=== PATIENT | female | born 1960 | race Caucasian/White ===

== ENCOUNTER 2025-08-14 05:57 | Day surgery (SDC) | payer OTHER, SELFPAY ==
[2025-08-14] VITALS (12 sets, daily range): BP systolic 124–142; BP diastolic 61–75; BMI 42.8
[2025-08-14 07:20] LABS: Hematocrit 39.0 % (37.0-47.0); Hemoglobin 12.3 g/dL (12.0-16.0); Mean Corp Hgb Conc. 31.5 g/dL (33.0-37.0); Mean Corpuscular Volume 82.6 fL (81.0-99.0); Platelet Count 333 10^3/uL (130-400); Red Cell Dist. Width 14.7 % (11.5-14.5)
[2025-08-14] MEDS: LOW STRENGTH ASPIRIN 324 MG PO (07:21)
[2025-08-14 07:26] LABS: Blood Urea Nitrogen 16 mg/dl (7-17); Calcium 9.2 mg/dl (8.4-10.2); Carbon Dioxide 29 mmol/L (22-30); Chloride 106 mmol/L (98-107); Glucose 111 mg/dl (70-99); Potassium 4.1 mmol/L (3.5-5.1); Sodium 142 mmol/L (135-145); eGFR > 60.00
--- NOTE | 2025-08-14 08:56 | ITS.CL.CATH ---
Addendum entered and electronically signed by Rey Nice MD 08/14/25 09:11:
HEMODYNAMIC FINDINGS (mmHg):
LV(s/d,EDP): 215/22, 29
Ao(s/d,m): 142/79, 104
AV gradient on pullback: 64mm Hg
AV peak to peak gradient: 73 mmHg
Original Note:
Cryptographic Clerk - Catheterization
Cardiac Catheterization
Procedure Report:
LEFT HEART CATHETERIZATION
Date of Procedure: August 14, 2025
Procedures performed:
1: Coronary angiography
2: Left ventricular hemodynamic assessment
Primary Care Physician: WILLIAN Chavis
Primary Layboy Operator: Dr. Fermin Wiggins
INDICATION: The patient is a 65-year-old woman with a past medical history significant for hypertension, obesity, lymphedema, and left bundle branch block who presents for cardiac catheterization in the setting of progressive critical aortic
valvular stenosis. The patient denies any chest pain or exertional symptoms.
ACCESS: The patient was prepped and draped in usual sterile fashion. A 5 Swedish sheath was placed in the right radial artery using the Seldinger over the wire technique.
HEMODYNAMIC FINDINGS (mmHg):
LV(s/d,EDP): 215/22, 29
Ao(s/d,m): 142/79, 104
ANGIOGRAPHIC FINDINGS:
Single-plane Left Ventriculography in WALKER Projection: Not done. Preserved LV EF with severe LVH by recent echo.
Coronary Angiography:
Dominance: Left
Left Main: Normal, short. Near dual ostia.
Left Anterior Descending: Medium caliber vessel that gives rise to 1 major high diagonal branch. These vessels are angiographically normal with normal flow.
Left Circumflex: Large-caliber dominant vessel that gives rise to a small high first obtuse marginal branch, a very large branching second obtuse marginal branch, a large caliber left-sided posterior left ventricular branch, and large left sided
posterior descending artery. All vessels are angiographically normal with normal flow.
Right Coronary: Small nondominant vessel. Unable to be selectively cannulated with a 5 Swedish J R4, AR-1, and AL-1 likely due to catheter whip from the jet and somewhat anterior takeoff. Image nonselectively with a pigtail injection at the
right coronary cusp. Widely patent vessel with no focal disease.
Fluoroscopy Time (min): 11.9
Radiation Dose (mGy): 602
DAP (Gy.cm2): 37
Closure device: None. A TR band was applied for hemostasis at the right wrist.
Complications: None.
ASSESSMENT:
1: Normal coronaries.
2: Elevated left ventricular filling pressures. The patient was given IV Lasix 20 mg at the end of the case.
CONCLUSIONS and RECOMMENDATIONS:
1: CT surgical evaluation for SAVR given young age. Will arrange for consultation with Dr. Jean Pierre Hooper.
2: Clinical follow-up as scheduled.
Rey Nice M.D.
[2025-08-14] MEDS: NSS 510 IV (09:05)
== END 2025-08-14 11:30 | disposition home or self-care (01) ==
LOC: CATH 05:57
PROVIDERS: ATTENDING PHYSICIAN Internal Medicine Interventional Cardiology; FAMILY PHYSICIAN Nurse Practitioner; OTHER PHYSICIAN Nurse Practitioner
DX: I08.0 Rheumatic disorders of both mitral and aortic valves (principal); I35.0 Nonrheumatic aortic (valve) stenosis; E66.9 Obesity, unspecified; I10 Essential (primary) hypertension; I89.0 Lymphedema, not elsewhere classified; I44.7 Left bundle-branch block, unspecified
CPT/HCPCS: 80048; 85027; 93005; 93458; C1769; C1894; Q9967

== ENCOUNTER → 2025-08-19 09:57 | Outpatient (REF) | payer OTHER, SELFPAY ==
[2025-08-19 11:48] LABS: Blood Urea Nitrogen 10 mg/dl (7-17); Calcium 9.1 mg/dl (8.4-10.2); Carbon Dioxide 29 mmol/L (22-30); Chloride 106 mmol/L (98-107); Glucose 99 mg/dl (70-99); Potassium 4.4 mmol/L (3.5-5.1); Sodium 139 mmol/L (135-145); eGFR > 60.00
== END ==
LOC: REG 09:57
PROVIDERS: ATTENDING PHYSICIAN Nurse Practitioner Acute Care; FAMILY PHYSICIAN Nurse Practitioner
DX: I35.0 Nonrheumatic aortic (valve) stenosis (principal)
CPT/HCPCS: 36415; 80048

== ENCOUNTER 2025-09-18 04:44 | Inpatient (IN) | payer OTHER, SELFPAY ==
[2025-08-23 09:51] LABS: Urine Character Clear (Clear)
--- NOTE | 2025-08-23 09:57 | CM ---
Met with and Mrs. Colby in [facility]'s. She states prior to admission she resides with her spouse in a two story home with two steps to enter. She states she has a full flight of steps to get to bedroom/full bathroom. She has a powder room on the
first floor. She states prior to admission she was independent with ambulation and adls. She states she does not have any DME in the home. She states she has a prescription plan and uses mail order ans [facility] when needed. She states her
spouse will be home to assist in her care if needed. The discharge plan is to return home with her spouse and a home visit by the Transitional Care Nurse when medically stable.
We reviewed pre-op and post-op routines. We reviewed the shower instructions. She has the soap, written instructions and the Cardiothoracic Surgery Educational Booklet. We also reviewed restrictions including sternal precautions and driving
restrictions. We discussed a home visit by the Transitional Care Nurse. She is areeable to a home visit. The plan is for AVR on Tuesday, September 18.
[2025-08-23 10:12] LABS: Hematocrit 37.2 % (37.0-47.0); Hemoglobin 11.8 g/dL (12.0-16.0); Mean Corp Hgb Conc. 31.7 g/dL (33.0-37.0); Mean Corpuscular Volume 85.7 fL (81.0-99.0); Nucleated Red Blood Cells % 0 %; Platelet Count 288 10^3/uL (130-400); Red Cell Dist. Width 15.6 % (11.5-14.5)
[2025-08-23 10:13] LABS: INR 0.93; PT 12.8 Sec (11.4-14.6)
[2025-08-23 10:37] LABS: Glycohemoglobin (HgbA1c) 5.8 % (4.0-5.6)
[2025-08-23 10:41] LABS: ALT (SGPT) 29 U/L (0-35); AST (SGOT) 21 U/L (14-36); Albumin 4.3 g/dl (3.5-5.0); Alkaline Phosphatase 97 U/L (38-126); Blood Urea Nitrogen 13 mg/dl (7-17); Calcium 9.1 mg/dl (8.4-10.2); Carbon Dioxide 28 mmol/L (22-30); Chloride 106 mmol/L (98-107); Glucose 88 mg/dl (70-99); Potassium 4.0 mmol/L (3.5-5.1); Sodium 141 mmol/L (135-145); Total Protein 7.2 g/dl (6.3-8.2); eGFR > 60.00
[2025-08-23 10:46] LABS: Urine Squamous Cell >30 /LPF (Few); Urine Urothelial Cell 0-2 /LPF (FEW)
[2025-08-23 10:47] LABS: Urine Red Blood Cell 0-2 /HPF (0-2)
[2025-08-26 09:12] VITALS: BMI 42.7
--- NOTE | 2025-09-09 10:45 | OID.L.PAT ---
Pulmonary Nodule Pat Letter
- -
09/09/25
DANI BARNETT
[address]
[place], [place] [address]
Deakimberly LOUISE,
A pulmonary nodule was seen on an imaging study done by [facility]. This was reviewed by the [facility] Pulmonary Nodule Advisory Board and the following recommendation was made:
Recommendation: Per Fleischner Society Guidelines for incidentally detected Pulmonary Nodules, if patient has increased risk factors for lung cancer, follow up CT Chest in one year recommended. If patient does not have increased risk factors, no
further follow up is required.
If you have any questions, please do not hesitate to contact your primary care physician. If you are in need of a Physician, you can go to [email or web address] and click on 'Find a Provider'. Type 'Family Medicine' in the search.
Oncology Nurse Navigator
[facility]
[phone]
--- NOTE | 2025-09-09 10:46 | OID.L.REC ---
Pulmonary Nodule Follow Up
- Recommendation
09/09/25
Pulmonary Nodule Review Recommendations
Your patient, DANI BARNETT, had a pulmonary nodule seen on an imaging study done on in the [facility] Radiology Department.
This was reviewed by the [facility] Pulmonary Nodule Advisory Board and the following recommendation was made:
Recommendation: Per Fleischner Society Guidelines for incidentally detected Pulmonary Nodules, if patient has increased risk factors for lung cancer, follow up CT Chest in one year recommended. If patient does not have increased risk factors, no
further follow up is required.
If you have any questions, please do not hesitate to contact us.
Sincerely,
Oncology Nurse Navigator
[facility]
[phone]
[2025-09-18] VITALS (10 sets, daily range): BP systolic 83–137; BP diastolic 49–68; O2SAT 95; BMI 42.9
[2025-09-18] MEDS: LOPRESSOR 25 MG PO (05:10)
[2025-09-18] MEDS: MAGNESIUM OXIDE 400 MG PO (05:10)
[2025-09-18] MEDS: PROTONIX 40 MG PO (05:10)
[2025-09-18] MEDS: BACTROBAN 2% OINTMENT 1 APPLIC NASAL ×2 (05:11→20:10)
--- NOTE | 2025-09-18 05:29 | PTCARENOTE ---
Patient admitted to CVICU. Patient confirmed 2 CHG showers. Patient washed w/ CHG wipes and clipped. Admission questions asked. Med rec performed. Medications administered. Lab obtained. Questions encouraged and answered. Awaiting CVOR.
--- NOTE | 2025-09-18 06:28 | W.CVOR.SURPR ---
CVOR Surgeon Immed Pre Op
-
I have examined this patient prior to performance of the scheduled procedure.
The patient's condition is unchanged from the time of the dictated/written History and
Physical and the patient is able to undergo the scheduled procedure.
savr
[2025-09-18 07:39] LABS: ACT+ - POC 134 Seconds (82-134)
[2025-09-18 08:08] LABS: Urine Character Clear (Clear)
[2025-09-18 08:38] LABS: ACT+ - POC 456 Seconds (82-134)
--- NOTE | 2025-09-18 08:45 | CM ---
pt in OR today, cm to follow.
[2025-09-18 08:47] LABS: B.E. - POC 0.1 mmol/L; Glucose - POC 110 mg/dl (70-99); HCO3 - POC 25 mmol/L (21-28); Hematocrit - POC 28 % PCV (37-47); Hemodilution- POC No; Hemoglobin Calculated - POC 9.6; Ionized Calcium - POC 1.12 mmol/L (1.15-1.33); Lactate - POC 1.11 mmol/L (0.36-0.75); O2 Saturation %Calculated-POC 98.6 % (94-98); PCO2 - POC 39 mmHg (35-48); PO2 - POC 115 mmHg (83-108); POC Comment PRE; Potassium - POC 3.6 mmol/L (3.5-5.1); Sodium - POC 141 mmol/L (136-145); Specimen Type - POC Arterial; pH - POC 7.41 (7.35-7.45)
[2025-09-18 08:49] LABS: ACT+ - POC 579 Seconds (82-134)
[2025-09-18 08:57] LABS: ACT+ - POC 529 Seconds (82-134)
[2025-09-18 09:00] LABS: Urine Squamous Cell 0-2 /LPF (Few)
[2025-09-18 09:01] LABS: Urine Red Blood Cell 0-2 /HPF (0-2); Urine White Cell 0-2 /HPF (0-5)
[2025-09-18 09:08] LABS: B.E. - POC 4.6 mmol/L; Glucose - POC 128 mg/dl (70-99); HCO3 - POC 29 mmol/L (21-28); Hematocrit - POC 29 % PCV (37-47); Hemodilution- POC Yes; Hemoglobin Calculated - POC 9.8; Ionized Calcium - POC 1.03 mmol/L (1.15-1.33); Lactate - POC 0.66 mmol/L (0.36-0.75); O2 Saturation %Calculated-POC 100.0 % (94-98); PCO2 - POC 39 mmHg (35-48); PO2 - POC 362 mmHg (83-108); POC Comment CPB; Potassium - POC 4.4 mmol/L (3.5-5.1); Sodium - POC 142 mmol/L (136-145); Specimen Type - POC Arterial; pH - POC 7.47 (7.35-7.45)
[2025-09-18 09:18] LABS: ACT+ - POC 527 Seconds (82-134)
[2025-09-18 09:22] LABS: B.E. - POC 3.3 mmol/L; Glucose - POC 168 mg/dl (70-99); HCO3 - POC 28 mmol/L (21-28); Hematocrit - POC 28 % PCV (37-47); Hemodilution- POC Yes; Hemoglobin Calculated - POC 9.6; Ionized Calcium - POC 1.08 mmol/L (1.15-1.33); Lactate - POC 0.96 mmol/L (0.36-0.75); O2 Saturation %Calculated-POC 99.8 % (94-98); PCO2 - POC 44 mmHg (35-48); PO2 - POC 231 mmHg (83-108); POC Comment CPB; Potassium - POC 4.0 mmol/L (3.5-5.1); Sodium - POC 141 mmol/L (136-145); Specimen Type - POC Arterial; pH - POC 7.42 (7.35-7.45)
[2025-09-18 09:30] LABS: ACT+ - POC 536 Seconds (82-134)
[2025-09-18 09:38] LABS: B.E. - POC 5.2 mmol/L; Glucose - POC 157 mg/dl (70-99); HCO3 - POC 30 mmol/L (21-28); Hematocrit - POC 30 % PCV (37-47); Hemodilution- POC Yes; Hemoglobin Calculated - POC 10.3; Ionized Calcium - POC 1.11 mmol/L (1.15-1.33); Lactate - POC 1.02 mmol/L (0.36-0.75); O2 Saturation %Calculated-POC 99.9 % (94-98); PCO2 - POC 43 mmHg (35-48); PO2 - POC 311 mmHg (83-108); POC Comment WARM; Potassium - POC 3.6 mmol/L (3.5-5.1); Sodium - POC 144 mmol/L (136-145); Specimen Type - POC Arterial; pH - POC 7.45 (7.35-7.45)
[2025-09-18 09:48] LABS: ACT+ - POC 120 Seconds (82-134)
--- NOTE | 2025-09-18 10:03 | W.PN.CT.SURG ---
CT Surgery Operative Note
-
CARDIAC SURGERY OPERATIVE REPORT
Preoperative Diagnosis: Severe aortic valve stenosis, critical gradient
Postoperative Diagnosis: Same
Procedure(s) Performed:
1. Status with aortic and right atrial cannulation
2. Surgical aortic valve replacement [23 mm bioprosthesis]
3. Placement of temporary ventricular pacing wire
4. Transesophageal echocardiography
Date of Surgery: 09/18/25
Comorbidities:
1. Critical gradients aortic valve stenosis
2. Mild left ventricular hypertrophy with LV diastolic dysfunction
3. Hypertension
4. Lymphedema
5. Morbidly obese a BMI of 42
Attending Surgeon: Jean Pierre Hooper MD, MS
Resident Surgeon: Christopher Barnes, PGY-2 (Cardiac Surgery Resident)
Assistants: Jean Pierre Jenkins PA-C (present and necessary to director of first impressions, retraction, suction, exposure, suture management, and wound closure under my direction)
Anesthesiology: Kalen Sirera MD and Tim Cheung CRNA
Scrub and Circulating RNs: Tamela Rosario RN, Dara Christian, CY
Supervisor Cd Area: Crystal Cummings CCP
Anesthesia: GETA
EBL: per perfusion records
Products: None
CPB Time: 54 minutes
Aortic Cross Clamp Time: 42 minutes
Indication(s) for Procedures: This is a 65-year-old female with aortic valve stenosis, her gradients were extremely elevated with a mean gradient of well over 70. Despite being asymptomatic, given her significantly elevated gradients, there was
significant concern for complications and so this Meritene discussion was to move forward with surgical intervention as part of her lifetime management.
Aortic Valve Description: Trileaflet aortic valve, heavily calcified with infiltration towards the annulus, left and right coronary ostia normal anatomic positions.
Findings: Her left ventricular ejection fraction preoperatively was 60% without any regional wall motion abnormalities. Following surgery her EF remained the same at 60% with no new regional wall motion abnormalities aortic valve was significant
calcified with which reduced leaflet excursion. She had a trileaflet morphology with normal coronary positions. Her aortic valve was excised and a total of 12 nonpledgeted 2 Ethibond sutures were placed circumferentially. This anchored a [address] with core knots. Following surgery she had no paravalvular leak and normal cardiac function. She did not require any inotropic support. Cardiac index was 2.4. She was in sinus rhythm. She did not require any blood
products.
Specimen(s): Aortic valve leaflet.
Prosthesis: 23 mm Brown Inspiris Resilia aortic valve prosthesis, serial #[id number].
Description of Procedure: The patient was taken to the operating room. Their identity and procedure to be performed were verified and they were positioned supine on the operating table. Induction via general anesthesia with endotracheal intubation
was performed and central venous access and arterial monitoring were inserted. A preoperative transesophageal echocardiogram was performed to assess cardiac function and valvular function. The patient was then prepped and draped from chin to feet in
a sterile fashion. A preoperative time-out was performed with all members of the team present. A midline chest incision was performed along with median sternotomy. The innominate vein was isolated. Full heparinization was given (a total of 60,000
units). We created a pericardial well. The aortic cannulation site was chosen where it was soft, pliable, and free of calcium. Cannulation was performed with an arterial cannula in the ascending aorta and a triple-stage venous cannula through the
right atrial appendage. The arterial cannula line had an appropriate bounce and correlating pressures with test dosing. Next, a root vent/antegrade cannula was inserted into the ascending aorta. The ACT was confirmed to be over 400 and retrograde
autologous priming was performed before commencing cardiopulmonary bypass. The pulmonary artery was away from the aorta to facilitate a clamp site and aortotomy. A left ventricular vent was placed at the right superior pulmonary vein and
secured. The aortic cross-clamp was placed after decreasing the flow on the bypass and mean arterial pressure. A total of 1.2L initial dose of antegrade Del-Nido cardioplegia solution was given and planned for re-dosing every 75 minutes as
necessary. There was rapid electro-mechanical arrest of the heart at 400 cc of cardioplegia. The left ventricle was observed for distention on echocardiogram and manual palpation. Cold slush was placed into a sponge and topically on the RV while we
systemically cooled to 34 degrees centigrade.
Carbon dioxide was used to flood the field. We manually identified the location of the right coronary take off. An aortotomy was made approximately 2cm above the sinotubular junction. The location of both left and right coronary vessels were
visualized in the root. The leaflets were excised and sent for pathological assessment. The annulus was debrided of any calcium being mindful of the annulus and membranous septum. The root and left ventricular outflow tract were thoroughly irrigated
to remove any debris. A total of 12 non-pledgeted 2-0 ethibond inverted annular sutures were placed [id number] circumferentially. These were brought through the sewing cuff of the prosthetic valve which as then parachuted into place. The left and
right coronary ostia were visualized and were unobstructed by the valve. A Cor-Knot device was used to secure the annular sutures. The valve was inspected and was well seated. The aortotomy was approximated with 4-0 prolene in two layers. De-airing
maneuvers were performed and temporary bipolar ventricular pacing wires were placed on the base of the right ventricle. The patient was placed in a Trendelenburg position and flows on bypass were lowered. The aortic cross clamp was removed and flows
were slowly brought back up. The aortotomy appeared hemostatic. Transesophageal echocardiography revealed no paravalvular leak and appropriate prosthetic function. Once de-airing was satisfactory, the left ventricular and root vents were removed.
After verifying acceptable parameters, we initiated weaning from cardiopulmonary bypass. Once we were off cardiopulmonary bypass, the venous cannula was clamped and removed. A test dose of protamine was administered and the patient was monitored for
any adverse reaction before resuming protamine. Once half of the protamine dose was delivered, pump suckers were turned off and the systolic blood pressure was lowered for aortic decannulation. The aortic cannula was removed and pursestrings were
tied down. All cannulation sites were oversewn with a 4-0 prolene. The aortotomy suture line was inspected and hemostasis was confirmed. Mediastinal hemostasis was obtained. Two 24Fr Audie drains were placed within the pericardium. The sternum was
approximated with 4#7 single and 3 #8 double stainless steel wires. Fascia was approximated with #1 vicryl suture. The subcutaneous, dermis and epidermis were closed in layers in a running fashion. The skin wound was cleansed and dressed.
All instrument, sponge, and needle counts were confirmed to be correct x 2 at the end of the operation. The patient was transferred to the cardiac intensive care unit in critical but stable condition.
I, Dr. Jean Pierre Hooper, was present, scrubbed for, and performed all critical elements of this procedure.
Jean Pierre Hooper MD, MS
Cardiothoracic Surgeon
[facility]
This operative dictation was created using the [employer] dictation system. Please excuse any grammatical, typographical, or 'sound alike' errors
[2025-09-18 10:38] LABS: Glucose - Point of Care 73 mg/dl (70-99)
[2025-09-18 10:46] LABS: Hematocrit 32.6 % (37.0-47.0); Hemoglobin 10.7 g/dL (12.0-16.0); Platelet Count 244 10^3/uL (130-400)
[2025-09-18 10:51] LABS: B.E. - POC -0.7 mmol/L; Glucose - POC 96 mg/dl (70-99); HCO3 - POC 24 mmol/L (21-28); Hematocrit - POC 28 % PCV (37-47); Hemodilution- POC Yes; Hemoglobin Calculated - POC 9.4; Ionized Calcium - POC 1.33 mmol/L (1.15-1.33); Lactate - POC 2.56 mmol/L (0.36-0.75); O2 Saturation %Calculated-POC 99.9 % (94-98); PCO2 - POC 38 mmHg (35-48); PO2 - POC 259 mmHg (83-108); POC Comment POST; Potassium - POC 3.1 mmol/L (3.5-5.1); Sodium - POC 143 mmol/L (136-145); Specimen Type - POC Arterial; pH - POC 7.40 (7.35-7.45)
[2025-09-18] MEDS: NSS 500 IV (10:51)
[2025-09-18] MEDS: ANCEF 10 IV ×2 (10:51)
[2025-09-18] MEDS: LIPITOR PO (10:51)
[2025-09-18] MEDS: NEURONTIN PO ×2 (10:51→17:00)
[2025-09-18 10:57] LABS: APTT 33.3 Sec (23.4-35.0); B.E. 0.4 mmol/L; HCO3 26.0 mmol/L (21-28); INR 1.32; O2 Saturation % 98.4 % (94-98); PCO2 45 mmHg (32-35); PO2 106 mmHg (83-108); PT 16.9 Sec (11.4-14.6); Potassium 4.1 mMOL/L (3.5-5.1); Sodium 139 mMOL/L (136-145)
[2025-09-18 11:00] LABS: O2 Therapy vent
[2025-09-18] MEDS: LR 250 ML IV ×3 (11:00→22:00)
--- NOTE | 2025-09-18 11:00 | CON.INTV ---
Consultation
Consultation Request
Date/Time Consultation Requested: 09/18
Date/Time Consultation Performed: 09/18
Reason for Consultation: critical care
Medical History
-
History of Present Illness:
History obtained from chart as patient is currently intubated and sedated. 65-year-old female with recent cardiac catheterization which confirmed severe aortic stenosis, normal coronaries. Patient had echocardiogram with normal function. Patient
has no significant pulmonary disease except with chronic lymphedema. She is now status post bioprosthetic AVR 09/18/2025 without complications. She is on low-dose norepinephrine at this time, did not require any blood products. We are asked to
help from critical care standpoint
.
PMH: Hypertension, hyperlipidemia, history of lymphedema, severe arctic stenosis, morbid obesity, history of left bundle branch block, history of PVCs
Past Medical History
Past Medical History: None (See above)
Past Surgical History: None (See above)
Social History
Tobacco: Non-smoker
Alcohol: None
Drug: None
Personal:
Living: With Family
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
Family History
Family History: Other (3 siblings, healthy. Parents )
Allergies / Home Medications
Allergies
Allergy/AdvReac Type Severity Reaction Status Date / Time
No Known Allergies Allergy Unverified 08/22/25 14:52
Home Medications
�Medication �Instructions �Recorded �Confirmed �Last Taken �Type
amlodipine 5 mg tablet 5 mg PO DAILY 08/14/25 09/18/25 09/15/25 17:00 History
atorvastatin 20 mg tablet 20 mg PO DAILY 08/14/25 09/18/25 09/15/25 17:00 History
furosemide 20 mg tablet 20 mg PO DAILY 08/14/25 09/18/25 09/15/25 17:00 History
losartan 100 mg tablet 100 mg PO DAILY 08/14/25 09/18/25 09/15/25 17:00 History
Review of Systems
-
Unable to Obtain full review of systems at this time due to: Patient Intubation
All other systems: Negative unless noted
Vitals / Labs / Diagnostic Testing
Vital Signs
Temp Pulse Resp BP Pulse Ox
96 F L 52 10 131/68 95
09/18/25 10:46 09/18/25 10:40 09/18/25 10:40 09/18/25 05:10 09/18/25 10:46
Laboratory Results
09/18/25
10:36
pH 7.37
pCO2 45 H
pO2 106
HCO3 26.0
O2 Delivery Level vent
Diagnostic Testing:
Physical Exam
-
HEENT: Normocephalic and Other (Right IJ, left upper extremity)
Cardiovascular: S1/S2, Regular Rhythm, Murmur (n), Rub and Peripheral Edema (tr)
Respiratory: Wheeze (n), Rales (n), Rhonchi (n) and Non-Labored Respirations
GI: Soft and Non Distended
Neurology: Other (Sedated, intubated)
Skin: Other (Mild pallor)
General: Comfortable
Assessment
-
65-year-old female with progressive aortic stenosis, critical with worsening gradients status post surgical bioprosthetic aortic valve replacement 09/18
S/p Biop AVR 09/18/2025
Critical aortic stenosis with worsening gradient
Postoperative anemia
Conditions present prior to admission
Hypertension/hyperlipidemia
History of lymphedema
Morbid obesity
History of left bundle branch block
Pulmonary nodule
Plan/recommendations
At this time, patient remains critically ill but appears stable
Requiring low-dose norepinephrine
Chest tube output minimal
Postoperative chest x-ray without acute findings
Remains on volume-cycled ventilation, adequate airway pressures
Postoperative EKG with left bundle branch block, chronic
Moving forward
Continue with supportive care per CT surgery
Anticipate extubation later today
Head of bed elevated postextubation
Follow-up blood sugars
Follow hemoglobin
EKG with baseline left bundle branch block
Prior CT imaging suggests small nodule right upper lobe
Lifelong non-smoker
No indication for follow-up imaging based on recommendations and guidelines
Reviewed with critical care nursing
Will follow
TCCT 31 min
[2025-09-18 11:01] LABS: Glucose - Point of Care 103 mg/dl (70-99)
--- NOTE | 2025-09-18 11:08 | CON.CAR ---
Addendum entered and electronically signed by Girish Gutierrez DO 09/18/25 14:07:
I saw and examined the patient.
The Spray Maker's note was reviewed and I agree with the note.
Comment:
Plan:
Cont post op care
Vent wean as per protocol
Compensated cv status.
Remains in sinus.
Reviewed with nursing
Original Note:
Consultation
Consultation Request
Date/Time Consultation Performed: 09/18/25
Requesting Provider: Dr. Hooper
Performing Provider: Kary Bernal PA-C for Dr. Gutierrez
Reason for Consultation: post AVR
Medical History
-
Chief Complaint: AVR
History of Present Illness:
Patient is a 65-year-old female with past medical history of hypertension, hyperlipidemia, obesity, chronic lymphedema, chronic degenerative aortic valve disease felt to be functionally bicuspid who had echocardiogram 06/2025 which showed significant
increase in aortic valve gradients, with jump in mean gradient from 55 to 89 mmHg. She then underwent cardiac catheterization 08/14/2025 which was without significant coronary disease. She was seen by CT surgery and arranged for AVR which took place
today. Cardiology consulted for assistance with postoperative management. Patient presently intubated and sedated
PMH:
Critical , functionally bicuspid
Hypertension
Obesity
Chronic lymphedema
Hyperlipidemia
Chronic left bundle branch block
Past Medical History
Past Medical History: Other (in HPI)
Social History
Tobacco: Non-Smoker
Alcohol: None
Personal:
Living: With Family
Employment: Employed
Family History
Family History: Unable to Obtain
Allergies / Home Medications
Allergy/AdvReac Type Severity Reaction Status Date / Time
No Known Allergies Allergy Unverified 08/22/25 14:52
�Medication �Instructions �Recorded �Confirmed �Type
amlodipine 5 mg tablet 5 mg PO DAILY 08/14/25 09/18/25 History
atorvastatin 20 mg tablet 20 mg PO DAILY 08/14/25 09/18/25 History
furosemide 20 mg tablet 20 mg PO DAILY 08/14/25 09/18/25 History
losartan 100 mg tablet 100 mg PO DAILY 08/14/25 09/18/25 History
Review of Systems
-
Unable to obtain full review of systems at this time due to: Patient Intubation
Physical Exam
Vital Signs
Temp Pulse Resp BP Pulse Ox
95.7 F L 50 12 131/68 96
09/18/25 11:00 09/18/25 11:04 09/18/25 11:00 09/18/25 05:10 09/18/25 11:04
Physical Exam
General: No Apparent Distress, Intubated and Other (obese. on el hugger)
HEENT: Normocephalic and Moist Mucous Membranes
Respiratory: Other (coarse BS B/L)
Cardiac: S1/S2 and Regular Rhythm
GI: Soft, Non Tender and Non Distended
Musculoskeletal: No Clubbing, No Cyanosis and Edema (trace of B/L LE)
Skin: Warm, Dry and Other (sternotomy incision c/d/i. CTs in place)
Neuro: Sedated
Impression / Plan
-
Primary Internet Specialist: Previously Dr. Paige, now followed by Dr. Weiss
Assessment:
Critical , functionally bicuspid status post bioprosthetic AVR number 23 mm 09/18/2025
Hypertension
Obesity
Chronic lymphedema
Hyperlipidemia
Chronic left bundle branch block
ECHO 06/2025: EF 55 to 60%, grade 2 diastolic dysfunction, mild AK/MS with MAC, bicuspid appearing aortic valve with right noncoronary cusp fused with peak/mean gradients 135/89 mmHg with SHERLY 0.4 cm�
Plan:
- Status post bioprosthetic number 23 mm AVR 09/18/2025
- Intubated, sedated
- On levo at 2, wean as able. CI 1.58
- In sinus bradycardia with left bundle branch block by EKG and telemetry postoperatively, follow
- Hemoglobin 10.7, follow
- Continue postoperative care
- Outpatient follow-up with [facility] [place]
- Discussed with nursing
Data Reviewed
-
EKG: Tracing Personally Visualized and interpreted
Medical Tests (Nuc Med, Echo etc): Report Reviewed by me
Labs: Labs Reviewed by me
Old Records: Reviewed
[2025-09-18 11:11] LABS: Blood Urea Nitrogen 13 mg/dl (7-17); Estimated Creatinine Clearance 116 ml/min; Glucose 74 mg/dl (70-99); Magnesium 2.6 mg/dl (1.6-2.3)
--- NOTE | 2025-09-18 11:15 | PTCARENOTE ---
Patient received from CVOR s/p AVR. SB via cm, SaO2 @ 95% on ventilator, titrating FiO2 as able. RIJ Cordis/Noonan-Yenifer catheter, L radial arterial lines present - leveled, flushed, and calibrated w/good waveforms returned. Epicardial V-wire to pulse
generator at back up rate, no current pacing noted. Mediastinal chest tubes x 2, Y-connected to one pleurevac, placed to -20cm suction w/no air leak appreciated. Armstrong catheter to gravity. Core temp 96.0, [place] Hugger applied. All procedural sites
stable. Labs drawn, EKG performed, pcxr obtained. POLY updated to hemodynamics, lab values. See work list for full assessment, interventions performed, and intravenous infusions and titrations.
[2025-09-18 12:01] LABS: Glucose - Point of Care 136 mg/dl (70-99)
[2025-09-18 12:59] LABS: Glucose - Point of Care 112 mg/dl (70-99)
[2025-09-18] MEDS: TYLENOL PO (13:02)
[2025-09-18] MEDS: OFIRMEV 100 IV (13:44)
[2025-09-18 14:02] LABS: Glucose - Point of Care 126 mg/dl (70-99)
[2025-09-18 14:47] LABS: Hematocrit 35.5 % (37.0-47.0); Hemoglobin 11.4 g/dL (12.0-16.0); Platelet Count 317 10^3/uL (130-400)
[2025-09-18 15:01] LABS: Glucose - Point of Care 115 mg/dl (70-99)
[2025-09-18 15:06] LABS: B.E. 0.4 mmol/L; HCO3 26.5 mmol/L (21-28); O2 Saturation % 98.7 % (94-98); PCO2 48 mmHg (32-35); PO2 103 mmHg (83-108)
--- NOTE | 2025-09-18 15:25 | PTCARENOTE ---
Patient noted to be overbreathing ventilator settings. CPAP wean initiated. No apnea, good TV noted. Patient able to MENDIETA, nod appropriately. ABG obtained, results conveyed to POLY [employer]. Patient extubated to 6lnc w/out incident, SaO2 @ 96%.
[2025-09-18] MEDS: LOW STRENGTH ASPIRIN 81 MG PO (16:01)
[2025-09-18 16:14] LABS: B.E. -0.3 mmol/L; HCO3 25.4 mmol/L (21-28); O2 Saturation % 99.0 % (94-98); PCO2 45 mmHg (32-35); PO2 107 mmHg (83-108); Potassium 4.3 mMOL/L (3.5-5.1); Sodium 137 mMOL/L (136-145)
[2025-09-18] MEDS: ZOFRAN 4 MG IV (17:00)
[2025-09-18 17:04] LABS: Glucose - Point of Care 102 mg/dl (70-99)
[2025-09-18] MEDS: ANCEF 5 IV (18:03)
[2025-09-18] MEDS: REGLAN 10 MG IV (18:18)
[2025-09-18 19:01] LABS: Glucose - Point of Care 97 mg/dl (70-99)
[2025-09-18] MEDS: SENOKOT PO (20:10)
[2025-09-18 21:32] LABS: Glucose - Point of Care 113 mg/dl (70-99)
[2025-09-18] MEDS: NEURONTIN 100 MG PO (21:42)
[2025-09-18] MEDS: TYLENOL 975 MG PO (21:42)
[2025-09-18 23:07] LABS: Glucose - Point of Care 96 mg/dl (70-99)
[2025-09-19] VITALS (19 sets, daily range): BP systolic 112–149; BP diastolic 54–73; PULSE 72; O2SAT 92–94; BMI 44.0
--- NOTE | 2025-09-19 | PTCARENOTE ---
Patient resting, denies pain, levo off, VSS, IS = 500.
[2025-09-19] MEDS: LR 250 ML IV ×2 (00:54→16:18)
--- NOTE | 2025-09-19 02:11 | W.PN.CT ---
Today's Communication / Plan
-
-pod #1
-hypoxia this am (pOx high 80s) while on Cardene @ 5-- dcd Cardene d/t possible shunting and switched to Nitro. IS upto 500 so far, did chest PT, no splinting, denies pain. ABG on 10L NRB is 7.38/40/74/23.7/96.1
-started on high flow NC 50L, 100% fiO2
-Had some vagal episodes with nausea and brief bradycardia down to 40s and brief v-pacing. Held BB
-sbp <120 overnight per AT- liberate sbp 90-130
-CI 2.45, CO 5.16. Drips: Insulin, Nitro 60
-CT outputs: 2 meds 145/245 in 12/24 hrs
-LR total 1250 postop
-deline
-d/c insulin
-maintain pw, cordis
-current meds (ASA, Lipitor, Amio, Protonix, Gabapentin). Held BB d/t intermittent bradycardia/vagal rxn
-encourage IS, OOB
Assessment / Plan
-
- Severe symptomatic aortic valve stenosis - s/p Surgical aortic valve replacement [23 mm Brown Inspiris Resilia bioprosthesis] by Dr. Hooper on 09/18/25, pod #1
- Intraop DIVINA: LVEF pre and postop was 60 % without any regional wma. Following surgery she had no paravalvular leak and normal cardiac function.
- Critical gradients aortic valve stenosis
- Mild left ventricular hypertrophy with LV diastolic dysfunction
- Hypertension
- Pre-existing LBBB
- Chronic b/l lower extremity lymphedema
- Class 3 obesity (BMI of 42)
- Preop anemia (hg 11.8 on 08/23/25)
- Acute postop blood loss anemia- stable, no transfusion
- Acute postop atelectasis/ hypoxia/pulmonary insufficiency
- Acute postop hypovolemia with subsequent hypervolemia
Discussed patient care with: Nursing and Care Team
Subjective
-
Date of Service: September 19, 2025
Objective Data
-
PT 16.9 Sec (11.4-14.6) H 09/18/25 10:36
INR 1.32 09/18/25 10:36
APTT 33.3 Sec (23.4-35.0) 09/18/25 10:36
Vital Signs
Vital Signs
Temp Pulse Resp BP Pulse Ox
98.5 F 58 18 110/49 95
09/18/25 23:00 09/18/25 23:04 09/18/25 23:04 09/18/25 23:00 09/18/25 23:04
CT Intake/Output/Weight
09/18/25 09/18/25 09/19/25
06:59 18:59 06:59
Intake Total 1164.0 / 1657.4 493.4 / 1657.4
Output Total 420 / 610 190 / 610
Balance 744.0 / 1047.4 303.4 / 1047.4
SaO2: 95
Physical Exam
-
General: Awake and Oriented
Cardiovascular: Regular rate & rhythm, No Murmurs and No Rub
Respiratory: Decreased Breath Sounds
Sternum: Stable
Incision: Clean, Dry and Intact
Extremities: Edema +1 (2+ DPs b/l)
Abdomen: soft, nontender, nondistended, + decreased bowel sounds
Data Reviewed
-
Lab Results: Results Reviewed
Medications: Active Meds Reviewed
Chest X-Ray: Report Reviewed and Image Reviewed
ECG: Report Reviewed and Image Reviewed
[2025-09-19 02:14] LABS: Glucose - Point of Care 92 mg/dl (70-99)
[2025-09-19] MEDS: ANCEF 5 IV ×2 (02:18→09:47)
[2025-09-19] MEDS: ROXICODONE 5 MG PO (02:18)
[2025-09-19 04:23] LABS: Blood Urea Nitrogen 20 mg/dl (7-17); Calcium 8.5 mg/dl (8.4-10.2); Carbon Dioxide 26 mmol/L (22-30); Chloride 107 mmol/L (98-107); Estimated Creatinine Clearance 116 ml/min; Glucose 114 mg/dl (70-99); Magnesium 2.2 mg/dl (1.6-2.3); Potassium 4.1 mmol/L (3.5-5.1); Sodium 135 mmol/L (135-145); eGFR > 60.00
[2025-09-19 04:27] LABS: Hematocrit 31.8 % (37.0-47.0); Hemoglobin 10.3 g/dL (12.0-16.0); Mean Corp Hgb Conc. 32.4 g/dL (33.0-37.0); Mean Corpuscular Volume 83.7 fL (81.0-99.0); Platelet Count 217 10^3/uL (130-400); Red Cell Dist. Width 15.5 % (11.5-14.5)
[2025-09-19] MEDS: NITROGLYCERIN PREMIX 250 IV (04:37)
[2025-09-19 05:28] LABS: B.E. -1.3 mmol/L; HCO3 23.7 mmol/L (21-28); O2 Saturation % 96.1 % (94-98); PCO2 40 mmHg (32-35); PO2 74 mmHg (83-108)
[2025-09-19] MEDS: TYLENOL 975 MG PO ×3 (05:42→21:33)
--- NOTE | 2025-09-19 06:06 | PTCARENOTE ---
Patient alert and oriented, CHB bath completed, BP elevated, Cardene gtt on and titrated to SBP <120, O2sat dropped to 83% Chest PT done, started on Non Rebreather, ABG done, stopped Cardene and and started nitro. Started on [place] NC, @ 50L 100%.
[2025-09-19 06:21] LABS: Glucose - Point of Care 116 mg/dl (70-99)
--- NOTE | 2025-09-19 08:00 | PTCARENOTE ---
Resumed care of patient from previous shifts RN. Walking rounds completed. Resting in bed at time of assessment. Drowsy but arousable. Epicardial V-wire to back up of 40/15. No pacing noted. pulses palpable. lymphedema noted to legs. chest tubes x2
to -20cm suction w/no air leak/crepitus. Armstrong draining 2-30hr yellow urine. All procedural sites stable. VSS on nitro and insulin per glycemic protocol. Will continue to monitor.
--- NOTE | 2025-09-19 08:05 | W.PN.INTV ---
Today's Communication / Plan
Recommendations
Oxygen requirement and chest x-ray findings noted
Consider diuresis if able
Wean oxygen as able
Incentive spirometry, pain control
Patient on IV nitro per CT surgery
Assessment
-
65-year-old female with progressive aortic stenosis, critical with worsening gradients status post surgical bioprosthetic aortic valve replacement 09/18
S/p Biop AVR 09/18/2025
Critical aortic stenosis with worsening gradient
Postoperative anemia
Postoperative hypoxia, requiring high flow oxygen
Conditions present prior to admission
Hypertension/hyperlipidemia
History of lymphedema
Morbid obesity
History of left bundle branch block
Pulmonary nodule
Plan/recommendations
At this time, patient remains critically ill but appears stable
She is extubated however required transition to high flow oxygen
Bradycardia noted, on amiodarone, beta-jorge l being held
Despite above, patient is denying shortness of breath at this time
Chest x-ray with bibasilar infiltrates, pleural effusions per my review
Postoperative EKG with left bundle branch block, chronic
Moving forward
Continue with supportive care per CT surgery
Chest x-ray consistent with possible fluid overload from my review
Consider diuresis. Will defer to CT surgery, cardiology
Patient was on Cardene, transition to IV nitro
Follow-up blood sugars
Follow hemoglobin
EKG with baseline left bundle branch block
Bradycardia noted likely vagal
Currently on amiodarone
Prior CT imaging suggests small nodule right upper lobe
Lifelong non-smoker
No indication for follow-up imaging based on recommendations and guidelines
pain control, incentive spirometry
Reviewed with critical care nursing
TCCT 31 min
Subjective Dataa
Subjective Data
Date of Service:
Date of Service: September 19, 2025
Subjective:
Patient extubated however requiring high flow oxygen, 93%. She has some mild incisional discomfort but otherwise denies chest pain, shortness of breath, nausea. Vagal episodes with nausea and bradycardia overnight noted. Beta-jorge l being held
Objective Data
Data Reviewed
Vital Signs / I&O / Oxygen:
Vital Signs
Temp Pulse Resp BP Pulse Ox
98.7 F 64 16 122/55 97
09/19/25 07:55 09/19/25 07:55 09/19/25 07:55 09/19/25 06:19 09/19/25 07:55
Intake and Output
09/18/25 09/19/25 09/20/25
06:59 06:59 06:59
Intake Total 2261.0 / 2261.0 61.3 / 61.3
Output Total 865 / 865 35 / 35
Balance 1396.0 / 1396.0 26.3 / 26.3
SaO2 [CPAP] 95
SaO2 [SIMV] 94
SaO2 97
Nasal Cannula flow liters per 50
minute
Physical Exam
General: Comfortable
HEENT: Normocephalic, Anicteric and Other (Large neck)
Cardiovascular: S1-S2, Regular Rhythm, Murmur (n), Rub (n) and Peripheral Edema (tr)
Respiratory: Wheeze (n), Crackles (n), Rhonchi (n), Non-Labored Respirations and Other (Decreased at base)
GI: Soft and Non Distended (Obese)
Neurology: Awake, Alert and No Motor Deficits (Moves all extremities, generally weak)
Skin: Cyanosis (n), Jaundice (n) and Other (Mild pallor)
Labs/Micro/Reports
Lab Data
09/19/25 03:37
09/19/25 03:37
Laboratory Results
09/18/25 09/18/25 09/18/25
10:36 14:59 16:05
PT 16.9 H
INR 1.32
APTT 33.3
pH 7.37 7.35 7.36
pCO2 45 H 48 H 45 H
pO2 106 103 107
HCO3 26.0 26.5 25.4
O2 Delivery Level vent
09/19/25
05:13
PT
INR
APTT
pH 7.38
pCO2 40 H
pO2 74 L
HCO3 23.7
O2 Delivery Level
--- NOTE | 2025-09-19 08:24 | W.PN.ANS.POP ---
Anesthesia Post Operative
- Anesthesia Post Op Note
Vital Signs Stable-See Nursing Note: Yes (Nitroglycerine gtt maintained)
Airway Patent: Yes (pt on high flow O2)
Adequate Pain Control: Yes
Change in Mental Status: No
Current Postoperative Nausea & Vomiting: No
Anesthesia Complications: No
General Anesthetic Recall: No
Unplanned Admission: No
Post Op Hydration Adequate: Yes
[2025-09-19 08:29] LABS: Glucose - Point of Care 83 mg/dl (70-99)
[2025-09-19] MEDS: BACTROBAN 2% OINTMENT 1 APPLIC NASAL ×2 (08:31→19:33)
[2025-09-19] MEDS: NEURONTIN 100 MG PO ×3 (09:46→21:33)
[2025-09-19] MEDS: PROTONIX 40 MG PO (09:46)
[2025-09-19] MEDS: LIDOCAINE 4% PATCH 1 PATCH TOPICAL (09:46)
[2025-09-19] MEDS: NORVASC 5 MG PO (09:46)
[2025-09-19] MEDS: MUCINEX 600 MG PO ×2 (09:46→19:32)
[2025-09-19] MEDS: PACERONE 200 MG PO ×3 (09:46→21:33)
[2025-09-19] MEDS: LIPITOR 20 MG PO (09:46)
[2025-09-19] MEDS: SENOKOT 8.6 MG PO ×2 (09:47→19:32)
[2025-09-19] MEDS: MAGNESIUM OXIDE 400 MG PO ×2 (09:47→19:32)
[2025-09-19] MEDS: LOW STRENGTH ASPIRIN 81 MG PO (09:47)
--- NOTE | 2025-09-19 12:00 | PTCARENOTE ---
mercy d/c'd. CI >2. OOB to chair. Armstrong left for decreased urine output. A line d/c'd. Weaned hi elis o2 to 6l nc. will continue to monitor.
--- NOTE | 2025-09-19 12:31 | W.PN.CARDCBS ---
Addendum entered and electronically signed by Humberto Robertson MD 09/19/25 16:24:
I saw and examined the patient on morning rounds.
The Telecommunications Consultant's note was reviewed and I agree with the note.
Comment: Briefly, 65-year-old woman past medical history of critical aortic stenosis and left bundle branch block who underwent aortic valve replacement on 09/18/2025
At time my evaluation patient was resting comfortably out of bed to chair in the CVICU and had no cardiac complaints
Not currently requiring inotrope or pressor support
Currently on high flow O2
Decreased breath sounds at bases bilaterally on exam and chest x-ray showing low lung volumes suggestive of postop atelectasis
Encouraged incentive spirometer and OOB to chair which will hopefully improve oxygenation
They tell me she has chronic lower extremity edema but for now appears relatively euvolemic on exam
Likely need to add back home Lasix in the next few days
Diuresis may improve her oxygenation
Discussed with at bedside
Original Note:
Today's Communication / Plan
-
continue post op care
wean O2
in SR with PACs
Impression / Plan
-
Primary Drive Worker: Previously Dr. Paige, now followed by Dr. Weiss
Assessment:
Critical , functionally bicuspid status post bioprosthetic AVR number 23 mm 09/18/2025
Hypertension
Obesity
Chronic lymphedema
Hyperlipidemia
Chronic left bundle branch block
ECHO 06/2025: EF 55 to 60%, grade 2 diastolic dysfunction, mild WI/MS with MAC, bicuspid appearing aortic valve with right noncoronary cusp fused with peak/mean gradients 135/89 mmHg with SHERLY 0.4 cm�
Plan:
- Status post bioprosthetic number 23 mm AVR 09/18/2025
- Presently on high flow, wean as able
- Off pressors, but remains on IV nitro at 40, wean as able. Cardene had been switched to IV nitro due to hypoxia with concern for possible shunting
- Diurese as able
- Was noted to have some vagal episodes with nausea and transient bradycardia with brief V pacing overnight. Beta-jorge l has been held. Continue p.o. Amio
- In sinus rhythm with PACs on review of telemetry. Has chronic left bundle branch block
- Hemoglobin 10.3
- Continue postop care. Encouraged IS
- Outpatient follow-up with [place] [facility] [place] [facility]
- Discussed with nursing
Progress Note - Drive Worker
Subjective
Date of Service: September 19, 2025
Reports some incisional pain/soreness. Denies shortness of breath
Objective
Labs:
09/19/25 03:37
09/19/25 03:37
Labs
Hgb 10.3 g/dL (12.0-16.0) L 09/19/25 03:37
Hct 31.8 % (37.0-47.0) L 09/19/25 03:37
Plt Count 217 10^3/uL (130-400) D 09/19/25 03:37
PT 16.9 Sec (11.4-14.6) H 09/18/25 10:36
INR 1.32 09/18/25 10:36
APTT 33.3 Sec (23.4-35.0) 09/18/25 10:36
Sodium 135 mmol/L (135-145) 09/19/25 03:37
Potassium 4.1 mmol/L (3.5-5.1) 09/19/25 03:37
BUN 20 mg/dl (7-17) H 09/19/25 03:37
Creatinine 0.6 mg/dL (0.6-1.0) 09/19/25 03:37
Glucose 114 mg/dl (70-99) H 09/19/25 03:37
Vital Signs and I&O:
Vital Signs
Temp Pulse Resp BP Pulse Ox
98.7 F 71 21 135/49 94
10/30/25 07:55 09/19/25 09:46 09/19/25 09:34 09/19/25 09:46 09/19/25 09:34
Vital Signs
Temp Pulse Resp BP Pulse Ox
98.7 F 71 21 135/49 94
09/19/25 07:55 09/19/25 09:46 09/19/25 09:34 09/19/25 09:46 09/19/25 09:34
Intake & Output
09/17/25 09/18/25 09/19/25 09/20/25
07:59 07:59 07:59 07:59
Intake Total 2322.3 / 2322.3
Output Total 900 / 900
Balance 1422.3 / 1422.3
Physical Exam
Physical Exam
GEN: No distress, awake, alert, oriented x3. Sitting in chair. Obese. On high flow O2
HEENT: supple, anicteric, mmm.
LUNGS: CTA bilaterally, no wheezes/rales
CV: Reg, S1/S2, no murmur
ABD: soft, BS+, NT/ND
EXT: No cyanosis, clubbing. 1+ edema of bilateral lower extremity
NEURO: Gross non-focal
SKIN: Warm, pink, dry. No rash. Sternotomy incision clean dry and intact. Chest tubes in place
[2025-09-19] MEDS: NSS IV (12:46)
[2025-09-19] MEDS: FERRLECIT 110 MG IV (14:42)
[2025-09-19] MEDS: COZAAR 25 MG PO (14:42)
[2025-09-19] MEDS: ROXICODONE 2.5 MG PO (14:43)
--- NOTE | 2025-09-19 17:15 | PTCARENOTE ---
250 LR bolus given as ordered. agreeable to ordering dinner. will continue to monitor.
[2025-09-19] MEDS: LASIX 20 MG IV (19:32)
[2025-09-19] MEDS: REMOVE LIDOCAINE PATCH 1 PATCH REMOVE (19:33)
--- NOTE | 2025-09-19 20:00 | PTCARENOTE ---
Assumed care of the patient at 1900. Patient OOB to chair, drowsy, AOx3, spouse at bedside. SR LBBB on CM, PAC's, rates 70-80's, heart tones audible, +2-3 LLE edema and +2 RLE edema, pt states L>R edema is her baseline; pulses palpable throughout.
Originally on 5LNC, desatting to 87-89% intermittently, increased to 6LNC, CVPA aware, lungs dim at the bases, no cough, acapella and IS encouraged. Abdomen obese, SNT, +BS. Armstrong catheter in place draining clear, yellow urine; IV Lasix administered
with initial good response and then approx 60 mLs/hr, see flow sheet. MSI KOTA CDI, surgical bra in place; CT site dressing CDI. RISelam Gan, PIVx1. See worklist for nursing interventions and medications administration. Assessment of needs ongoing.
[2025-09-20] VITALS (25 sets, daily range): BP systolic 116–180; BP diastolic 58–115; PULSE 82; O2SAT 90–93; BMI 42.7
--- NOTE | 2025-09-20 00:22 | PTCARENOTE ---
Patient sleeping between care, VSS, maintained on 6LNC; Tmax 100.2. CHG cloth bath and mckeon care performed; no acute issues. Assessment of needs ongoing, call espinal within reach.
--- NOTE | 2025-09-20 04:00 | PTCARENOTE ---
Patient sleeping between care. Hypertensive at some intervals, see flow sheet, CVPA aware, continue to monitor. Assessment unchanged. Call epsinal within reach.
[2025-09-20 04:31] LABS: Hematocrit 29.9 % (37.0-47.0); Hemoglobin 9.9 g/dL (12.0-16.0); Mean Corp Hgb Conc. 33.1 g/dL (33.0-37.0); Mean Corpuscular Volume 83.8 fL (81.0-99.0); Platelet Count 206 10^3/uL (130-400); Red Cell Dist. Width 15.9 % (11.5-14.5)
[2025-09-20 04:46] LABS: Blood Urea Nitrogen 22 mg/dl (7-17); Calcium 8.4 mg/dl (8.4-10.2); Carbon Dioxide 27 mmol/L (22-30); Chloride 102 mmol/L (98-107); Estimated Creatinine Clearance 90 ml/min; Glucose 139 mg/dl (70-99); Magnesium 2.2 mg/dl (1.6-2.3); Potassium 4.2 mmol/L (3.5-5.1); Sodium 131 mmol/L (135-145); eGFR > 60.00
[2025-09-20] MEDS: TYLENOL 975 MG PO ×3 (06:15→21:46)
--- NOTE | 2025-09-20 07:45 | W.PN.INTV ---
Today's Communication / Plan
Recommendations
Continue diuresis if able
Out of bed to chair, ambulate
Continue to wean oxygen
Incentive spirometry
Consider outpatient sleep evaluation
Once transferred to telemetry, we will sign off. Please call with questions
Assessment
-
65-year-old female with progressive aortic stenosis, critical with worsening gradients status post surgical bioprosthetic aortic valve replacement 09/18
S/p Biop AVR 09/18/2025
Critical aortic stenosis with worsening gradient
Postoperative anemia
Postoperative hypoxia, requiring high flow oxygen
Improved
Conditions present prior to admission
Hypertension/hyperlipidemia
History of lymphedema
Morbid obesity
History of left bundle branch block
Pulmonary nodule
Plan/recommendations
At this time, patient appears to be objectively and subjectively improved
Chest x-ray with mild improvement in aeration, persistent bibasilar atelectasis noted
Transitioned from high flow to nasal cannula 6 L
Positive fluid status noted
Postoperative EKG with left bundle branch block, chronic
Moving forward
Continue with supportive care per CT surgery
Chest x-ray consistent with possible fluid overload from my review
Consider diuresis. Will defer to CT surgery, cardiology
Follow-up blood sugars
Follow hemoglobin
EKG with baseline left bundle branch block
Bradycardia noted likely vagal, improved
Prior CT imaging suggests small nodule right upper lobe
Lifelong non-smoker
No indication for follow-up imaging based on recommendations and guidelines
pain control, incentive spirometry
Discussed my suspicion for possible sleep disordered breathing based on airway exam, neck size
Reviewed risks and ramifications of untreated sleep apnea
Recommend evaluation either through primary or our office.
Sleep follow-up information left in chart
Reviewed with critical care nursing
Once transferred to telemetry, we will sign off. Please call with questions
Subjective Dataa
Subjective Data
Date of Service:
Date of Service: September 20, 2025
Subjective:
Overall, patient much improved, sitting in chair. at bedside. Denies shortness of breath, nausea, significant cough
Objective Data
Data Reviewed
Vital Signs / I&O / Oxygen:
Vital Signs
Temp Pulse Resp BP Pulse Ox
98.2 F 95 17 122/72 94
09/20/25 04:00 09/20/25 06:00 09/20/25 06:00 09/20/25 06:00 09/20/25 06:00
Intake and Output
09/19/25 09/20/25 09/21/25
06:59 06:59 06:59
Intake Total 2261.0 / 2261.0 846.6 / 846.6
Output Total 865 / 865 1025 / 1025
Balance 1396.0 / 1396.0 -178.4 / -178.4
SaO2 [CPAP] 95
SaO2 [SIMV] 94
SaO2 94
Nasal Cannula flow liters per 6
minute
Physical Exam
General: Comfortable, Other (Large neck) and Other (IJ, chest tube)
HEENT: Normocephalic, Anicteric and Other (Large neck)
Cardiovascular: S1-S2, Regular Rhythm, Murmur (n), Rub (n) and Peripheral Edema (tr)
Respiratory: Wheeze (n), Crackles (n), Rhonchi (n), Non-Labored Respirations and Stridor (n)
GI: Soft, Non Distended (Obese) and Non Tender
Neurology: Awake, Alert and No Motor Deficits (Moves all extremities, generally weak)
Skin: Cyanosis (n), Jaundice (n) and Other (Mild pallor)
Labs/Micro/Reports
Lab Data
09/20/25 04:09
09/20/25 04:09
[2025-09-20] MEDS: PROTONIX 40 MG PO (08:11)
[2025-09-20] MEDS: PACERONE 200 MG PO ×3 (08:12→21:46)
[2025-09-20] MEDS: LOW STRENGTH ASPIRIN 81 MG PO (08:13)
[2025-09-20] MEDS: MUCINEX 600 MG PO ×2 (08:13→19:49)
[2025-09-20] MEDS: NORVASC 5 MG PO (08:13)
[2025-09-20] MEDS: LIPITOR 20 MG PO (08:13)
[2025-09-20] MEDS: MAGNESIUM OXIDE 400 MG PO ×2 (08:13→19:49)
[2025-09-20] MEDS: COZAAR 50 MG PO (08:13)
[2025-09-20] MEDS: SENOKOT 8.6 MG PO ×2 (08:14→19:48)
[2025-09-20] MEDS: BACTROBAN 2% OINTMENT 1 APPLIC NASAL ×2 (08:14→19:49)
[2025-09-20] MEDS: NEURONTIN 100 MG PO ×3 (08:14→21:46)
[2025-09-20] MEDS: LIDOCAINE 4% PATCH 1 PATCH TOPICAL (08:15)
--- NOTE | 2025-09-20 08:43 | W.PN.CT ---
Today's Communication / Plan
-
-pod #2
-no issues overnight
-Tm 100.1- encourage IS
-CT outputs: 2 meds 90/190 in 12/24 hrs
-currently, on 6 L NC with pOx 94%- wean as tolerated
-UO improved with iv Lasix- continue
-encourage OOb
Assessment / Plan
-
- Severe symptomatic aortic valve stenosis - s/p Surgical aortic valve replacement [23 mm Brown Inspiris Resilia bioprosthesis] by Dr. Hooper on 09/18/25, pod #2
- Intraop DIVINA: LVEF pre and postop was 60 % without any regional wma. Following surgery she had no paravalvular leak and normal cardiac function.
- Critical gradients aortic valve stenosis
- Mild left ventricular hypertrophy with LV diastolic dysfunction
- Hypertension
- Pre-existing LBBB
- Chronic b/l lower extremity lymphedema
- Class 3 obesity (BMI of 42)
- Preop anemia (hg 11.8 on 08/23/25)
- Acute postop blood loss anemia- stable, no transfusion
- Acute postop atelectasis/ hypoxia/pulmonary insufficiency
- Acute postop hypovolemia with subsequent hypervolemia
Discussed patient care with: Nursing and Care Team
Subjective
-
Date of Service: September 20, 2025
Objective Data
-
Lab Results
09/20/25 04:09
09/20/25 04:09
PT 16.9 Sec (11.4-14.6) H 09/18/25 10:36
INR 1.32 09/18/25 10:36
APTT 33.3 Sec (23.4-35.0) 09/18/25 10:36
Vital Signs
Vital Signs
Temp Pulse Resp BP Pulse Ox
98.8 F 86 18 154/66 93
09/20/25 08:08 09/20/25 08:13 09/20/25 08:08 09/20/25 08:13 09/20/25 08:08
CT Intake/Output/Weight
09/19/25 09/20/25 09/20/25
18:59 06:59 18:59
Intake Total 626.6 / 846.6 220 / 846.6 510 / 510
Output Total 255 / 1025 770 / 1025 40 / 40
Balance 371.6 / -178.4 -550 / -178.4 470 / 470
SaO2: 93
Physical Exam
-
General: Awake and Oriented
Cardiovascular: Regular rate & rhythm, No Murmurs and No Rub
Respiratory: Decreased Breath Sounds
Sternum: Stable
Incision: Clean, Dry and Intact
Abdomen: soft, nontender, nondistended, + decreased bowel sounds
Extremities: Edema +1 (2+ DPs b/l)
Data Reviewed
-
Lab Results: Results Reviewed
Medications: Active Meds Reviewed
Chest X-Ray: Report Reviewed and Image Reviewed
ECG: Report Reviewed and Image Reviewed
--- NOTE | 2025-09-20 09:03 | PTCARENOTE ---
Rec'd pt this shift awake and alert, sitting in chair. Pt NSR on monitor. Oxygen weaned to 4l n/c oxygen. Encouraged coughing and deep breathing and use of IS. AM meds given. See worklist for VS/I and O and assessments.
--- NOTE | 2025-09-20 11:23 | W.PN.CARDCBS ---
Addendum entered and electronically signed by Yogesh Teixeira MD 09/20/25 12:20:
I saw and examined the patient.
The Cryptographic Machine Operator's note was reviewed and I agree with the note.
Comment:
GEN: No distress, awake, Ox3
HEENT: supple, anicteric, mmm
LUNGS: CTA, no wheezes/rales
CV: Reg, S1/S2, no rub
ABD: soft, BS+, NT/ND
EXT: No edema
NEURO: Gross non-focal
SKIN: sternotomy
Plan:
Overall doing well status post AVR. Remains in sinus rhythm.
cont Metoprolol and Amiodarone.
Hemoglobin at 9.9
Original Note:
Today's Communication / Plan
-
wean O2
continue post op care
in SR
Impression / Plan
-
Primary Piece Presser: Previously Dr. Paige, now followed by Dr. Weiss
Assessment:
Critical , functionally bicuspid status post bioprosthetic AVR number 23 mm 09/18/2025
Hypertension
Obesity
Chronic lymphedema
Hyperlipidemia
Chronic left bundle branch block
ECHO 06/2025: EF 55 to 60%, grade 2 diastolic dysfunction, mild SD/MS with MAC, bicuspid appearing aortic valve with right noncoronary cusp fused with peak/mean gradients 135/89 mmHg with SHERLY 0.4 cm�
Plan:
- Status post bioprosthetic number 23 mm AVR 09/18/2025
- Weaning oxygen. Presently on 5 L nasal cannula. Remains with orthopnea. Continue diuresis
- In sinus rhythm on review of telemetry overnight. Has chronic left bundle branch block. Continue p.o. Amio. Has not received dose of Lopressor postop due to transient bradycardia
- Hemoglobin 9.9. Continue aspirin, Plavix
- Continue postop care. Encouraged IS
- Outpatient follow-up with [facility] [place]
- Discussed with nursing
Progress Note - Piece Presser
Subjective
Date of Service: September 20, 2025
Reports feels as though she is improving.
Objective
Labs:
09/20/25 04:09
09/20/25 04:09
Labs
Hgb 9.9 g/dL (12.0-16.0) L 09/20/25 04:09
Hct 29.9 % (37.0-47.0) L 09/20/25 04:09
Plt Count 206 10^3/uL (130-400) 09/20/25 04:09
PT 16.9 Sec (11.4-14.6) H 09/18/25 10:36
INR 1.32 09/18/25 10:36
APTT 33.3 Sec (23.4-35.0) 09/18/25 10:36
Sodium 131 mmol/L (135-145) L 09/20/25 04:09
Potassium 4.2 mmol/L (3.5-5.1) 09/20/25 04:09
BUN 22 mg/dl (7-17) H 09/20/25 04:09
Creatinine 0.8 mg/dL (0.6-1.0) 09/20/25 04:09
Glucose 139 mg/dl (70-99) H 09/20/25 04:09
Vital Signs and I&O:
Vital Signs
Temp Pulse Resp BP Pulse Ox
98.8 F 86 18 154/66 93
09/20/25 08:08 09/20/25 08:13 09/20/25 08:08 09/20/25 08:13 09/20/25 08:48
Vital Signs
Temp Pulse Resp BP Pulse Ox
98.8 F 86 18 154/66 93
09/20/25 08:08 09/20/25 08:13 09/20/25 08:08 09/20/25 08:13 09/20/25 08:48
Intake & Output
09/18/25 09/19/25 09/20/25 09/21/25
07:59 07:59 07:59 07:59
Intake Total 2322.3 / 2322.3 785.3 / 785.3 510 / 510
Output Total 900 / 900 990 / 990 40 / 40
Balance 1422.3 / 1422.3 -204.7 / -204.7 470 / 470
Physical Exam
Physical Exam
GEN: No distress, awake, alert, oriented x3. Sitting in chair. Obese. On supp O2
HEENT: supple, anicteric, mmm.
LUNGS: CTA bilaterally, no wheezes/rales
CV: Reg, S1/S2, no murmur
ABD: soft, BS+, NT/ND
EXT: No cyanosis, clubbing. trace edema of bilateral lower extremity
NEURO: Gross non-focal
SKIN: Warm, pink, dry. No rash. Sternotomy incision clean dry and intact. Chest tubes in place
--- NOTE | 2025-09-20 12:41 | PTCARENOTE ---
epicardial wires removed by EJ Henson. VS and bedrest as per protocol. Chest tubes d/c'd. Armstrong d/c'd.
[2025-09-20] MEDS: NSS 500 IV (13:40)
[2025-09-20] MEDS: FERRLECIT 110 MG IV (13:40)
--- NOTE | 2025-09-20 17:07 | PTCARENOTE ---
Pt ambulating in room and in hallway, tolerated well. Pt remains on 3l n/c oxygen while ambulating. Pulse ox 93%. Pt voided without difficulty.
[2025-09-20] MEDS: LOPRESSOR 12.5 MG PO (19:49)
[2025-09-20] MEDS: REMOVE LIDOCAINE PATCH 1 PATCH REMOVE (19:54)
--- NOTE | 2025-09-20 23:00 | PTCARENOTE ---
patient ambulated in room, voiding , vss stable, CHG bath and oral care completed. denies pain.
[2025-09-21] VITALS (15 sets, daily range): BP systolic 112–165; BP diastolic 45–87; PULSE 76; O2SAT 94–96; BMI 42.6
--- NOTE | 2025-09-21 01:23 | W.PN.CT ---
Today's Communication / Plan
-
-pod #3
-no issues overnight
-wt is up 7 lbs on 09/20. Consider diuresis
-currently, on 3L NC with pOx 93%- wean as tolerated
-encourage OOB, IS, ambulate
Assessment / Plan
-
- Severe symptomatic aortic valve stenosis - s/p Surgical aortic valve replacement [23 mm Brown Inspiris Resilia bioprosthesis] by Dr. Hooper on 09/18/25, pod #3
- Intraop DIVINA: LVEF pre and postop was 60 % without any regional wma. Following surgery she had no paravalvular leak and normal cardiac function.
- Critical gradients aortic valve stenosis
- Mild left ventricular hypertrophy with LV diastolic dysfunction
- Hypertension
- Pre-existing LBBB
- Chronic b/l lower extremity lymphedema
- Class 3 obesity (BMI of 42)
- Preop anemia (hg 11.8 on 08/23/25)
- Acute postop blood loss anemia- stable, no transfusion
- Acute postop atelectasis/ hypoxia/pulmonary insufficiency
- Acute postop hypovolemia with subsequent hypervolemia
Discussed patient care with: Nursing and Care Team
Subjective
-
Date of Service: September 21, 2025
Objective Data
-
PT 16.9 Sec (11.4-14.6) H 09/18/25 10:36
INR 1.32 09/18/25 10:36
APTT 33.3 Sec (23.4-35.0) 09/18/25 10:36
Vital Signs
Vital Signs
Temp Pulse Resp BP Pulse Ox
98.9 F 71 20 132/60 93
09/21/25 00:00 09/21/25 00:10 09/21/25 00:00 09/21/25 00:10 09/21/25 00:10
CT Intake/Output/Weight
10/31/25 10/31/25 11/01/25
06:59 18:59 06:59
Intake Total 220 / 846.6 1130 / 1430 300 / 1430
Output Total 770 / 1025 140 / 265 125 / 265
Balance -550 / -178.4 990 / 1165 175 / 1165
SaO2: 93
Physical Exam
-
General: Awake and Oriented
Cardiovascular: Regular rate & rhythm, No Murmurs and No Rub
Respiratory: Decreased Breath Sounds
Sternum: Stable
Incision: Clean, Dry and Intact
Abdomen: soft, nontender, nondistended, + decreased bowel sounds
Extremities: Edema +1 (2+ DPs b/l)
Data Reviewed
-
Lab Results: Results Reviewed
Medications: Active Meds Reviewed
Chest X-Ray: Report Reviewed and Image Reviewed
ECG: Report Reviewed and Image Reviewed
[2025-09-21] MEDS: ZOFRAN 4 MG IV (03:29)
[2025-09-21 03:31] LABS: Hematocrit 30.7 % (37.0-47.0); Hemoglobin 9.5 g/dL (12.0-16.0); Mean Corp Hgb Conc. 30.9 g/dL (33.0-37.0); Mean Corpuscular Volume 86.0 fL (81.0-99.0); Platelet Count 201 10^3/uL (130-400); Red Cell Dist. Width 16.0 % (11.5-14.5)
[2025-09-21 03:44] LABS: Blood Urea Nitrogen 16 mg/dl (7-17); Calcium 8.3 mg/dl (8.4-10.2); Carbon Dioxide 29 mmol/L (22-30); Chloride 104 mmol/L (98-107); Estimated Creatinine Clearance 120 ml/min; Glucose 124 mg/dl (70-99); Magnesium 2.2 mg/dl (1.6-2.3); Potassium 4.0 mmol/L (3.5-5.1); Sodium 136 mmol/L (135-145); eGFR > 60.00
--- NOTE | 2025-09-21 03:45 | PTCARENOTE ---
patient OOB to bathroom, I person assist. Voided clear yellow urine, had period of nausea, zofran given, patient resting comfortably. VSS.
[2025-09-21] MEDS: TYLENOL 975 MG PO ×3 (05:54→21:37)
[2025-09-21] MEDS: REGLAN 10 MG IV (06:07)
--- NOTE | 2025-09-21 06:11 | PTCARENOTE ---
patient reports nausea, zofran given, without much improvement reglan than given secondary. xray done.
--- NOTE | 2025-09-21 07:07 | W.PN.INTV ---
Today's Communication / Plan
Recommendations
Incentive spirometry, out of bed, ambulate
Consider diuresis
Wean oxygen
Patient transferred to telemetry. We will sign off. Please call with questions
Assessment
-
65-year-old female with progressive aortic stenosis, critical with worsening gradients status post surgical bioprosthetic aortic valve replacement 09/18
S/p Biop AVR 09/18/2025
Critical aortic stenosis with worsening gradient
Postoperative anemia
Postoperative hypoxia, requiring high flow oxygen
Improved
Conditions present prior to admission
Hypertension/hyperlipidemia
History of lymphedema
Morbid obesity
History of left bundle branch block
Pulmonary nodule
Plan/recommendations
At this time, patient appears to be objectively and subjectively improved
Chest x-ray with mild improvement in aeration, persistent bibasilar atelectasis noted
Transitioned from high flow to nasal cannula 3 L
Positive fluid status noted
Postoperative EKG with left bundle branch block, chronic
Moving forward
Continue with supportive care per CT surgery
Chest x-ray consistent with possible fluid overload from my review
Consider diuresis.
Will defer to CT surgery, cardiology
Follow-up blood sugars
Follow hemoglobin, stable
EKG with baseline left bundle branch block
Bradycardia noted likely vagal, improved
Prior CT imaging suggests small nodule right upper lobe
Lifelong non-smoker
No indication for follow-up imaging based on recommendations and guidelines
pain control, incentive spirometry
Discussed my suspicion for possible sleep disordered breathing based on airway exam, neck size
Reviewed risks and ramifications of untreated sleep apnea
Recommend evaluation either through primary or our office.
Sleep follow-up information left in chart
Patient transferred to telemetry. We will sign off. Please call with questions
Subjective Dataa
Subjective Data
Date of Service:
Date of Service: September 21, 2025
Subjective:
Patient feeling improved. Ambulating without difficulty. Denies chest discomfort, nausea.
Objective Data
Data Reviewed
Vital Signs / I&O / Oxygen:
Vital Signs
Temp Pulse Resp BP Pulse Ox
98.8 F 72 20 165/80 96
09/21/25 04:00 09/21/25 04:15 09/21/25 04:00 09/21/25 04:00 09/21/25 04:15
Intake and Output
09/20/25 09/21/25 09/22/25
06:59 06:59 05:59
Intake Total 846.6 / 846.6 1650 / 1650
Output Total 1025 / 1025 840 / 840
Balance -178.4 / -178.4 810 / 810
SaO2 [CPAP] 95
SaO2 [SIMV] 94
SaO2 96
Nasal Cannula flow liters per 3
minute
Physical Exam
General: Comfortable, Other (Large neck) and Other (IJ, chest tube)
HEENT: Normocephalic, Anicteric and Other (Large neck)
Cardiovascular: S1-S2, Regular Rhythm, Murmur (n), Rub (n) and Peripheral Edema (tr)
Respiratory: Wheeze (n), Crackles (n), Rhonchi (n), Non-Labored Respirations and Stridor (n)
GI: Soft, Non Distended (Obese) and Non Tender
Neurology: Awake, Alert and No Motor Deficits (Moves all extremities, generally weak)
Skin: Cyanosis (n), Jaundice (n) and Other (Mild pallor)
Labs/Micro/Reports
Lab Data
09/21/25 03:06
09/21/25 03:06
--- NOTE | 2025-09-21 09:00 | PTCARENOTE ---
Patient received from cnc machinist 2nd shift resting in bed, sleepy but arousable and appropriate. NSR via cm, SaO2 @ 95% on 3lnc. RIJ Cordis w/kvo infusing. All procedural sites stable. Assisted oob to bathroom, voided, am care performed, settled to chair,
breakfast ordered. Patient updated to plan of care for the day, in agreement. See work list for full assessment and interventions performed.
[2025-09-21] MEDS: BACTROBAN 2% OINTMENT 1 APPLIC NASAL ×2 (09:12→20:20)
[2025-09-21] MEDS: MUCINEX 600 MG PO ×2 (09:12→20:20)
[2025-09-21] MEDS: LIDOCAINE 4% PATCH 1 PATCH TOPICAL (09:12)
[2025-09-21] MEDS: LOPRESSOR 12.5 MG PO ×2 (09:13→20:20)
[2025-09-21] MEDS: LIPITOR 20 MG PO (09:13)
[2025-09-21] MEDS: COZAAR 50 MG PO (09:14)
[2025-09-21] MEDS: SENOKOT 8.6 MG PO ×2 (09:15→20:20)
[2025-09-21] MEDS: PROTONIX 40 MG PO (09:15)
[2025-09-21] MEDS: PACERONE 200 MG PO ×3 (09:15→21:37)
[2025-09-21] MEDS: LOW STRENGTH ASPIRIN 81 MG PO (09:15)
[2025-09-21] MEDS: NORVASC 5 MG PO (09:15)
[2025-09-21] MEDS: NEURONTIN 100 MG PO ×3 (09:16→21:37)
[2025-09-21] MEDS: MAGNESIUM OXIDE 400 MG PO ×2 (09:16→20:20)
[2025-09-21] MEDS: NSS IV (10:42)
[2025-09-21] MEDS: LASIX 40 MG IV (11:34)
[2025-09-21] MEDS: KCL 20 MEQ PO (11:34)
--- NOTE | 2025-09-21 11:52 | PTCARENOTE ---
VS obtained, assessment stable. Patient remains oob in chair, ambulating to bathroom w/min assist. at bedside for visit.
[2025-09-21] MEDS: FLEXERIL 5 MG PO (13:58)
[2025-09-21] MEDS: FERRLECIT 110 MG IV (13:58)
--- NOTE | 2025-09-21 20:00 | PTCARENOTE ---
Assumed care of the patient at 1900. Patient OOB to chair, AOx3, pleasant, spouse at bedside. SR LBBB on CM 70-80's, heart tones audible, trace edema LEs, pulses palpable. Lungs dim at the bases on RA, no cough, acapella and IS encouraged. Abdomen
obese, SNT, +BS. Voiding spontaneously into the toilet. [employer] OPERATOR SUPERVISOR CDI, surgical bra in place; CT site dressing CDI. PIVx1. See worklist for nursing interventions and medication administration. Assessment of needs ongoing.
[2025-09-21] MEDS: REMOVE LIDOCAINE PATCH 1 PATCH REMOVE (20:20)
[2025-09-22 00:04] VITALS: BP 135/66
--- NOTE | 2025-09-22 00:05 | PTCARENOTE ---
VSS, patient sleeping between care. Desatting on RA, placed on 2LNC with SpO2 91%. CVNP notified.
--- NOTE | 2025-09-22 01:11 | W.PN.CT ---
Today's Communication / Plan
-
-pod #4
-no issues overnight
-UOP 200/1925 cc in 12/24 hrs, wt remains up since admit. K 3.3, 80 mEq KCL given total this AM
-now off O2
-encourage OOB, IS, ambulate
-DC planning
Assessment / Plan
-
- Severe symptomatic aortic valve stenosis - s/p Surgical aortic valve replacement [23 mm Brown Inspiris Resilia bioprosthesis] by Dr. Hooper on 09/18/25, pod #4
- Intraop DIVINA: LVEF pre and postop was 60 % without any regional wma. Following surgery she had no paravalvular leak and normal cardiac function.
- Critical gradients aortic valve stenosis
- Mild left ventricular hypertrophy with LV diastolic dysfunction
- Hypertension
- Pre-existing LBBB
- Chronic b/l lower extremity lymphedema
- Class 3 obesity (BMI of 42)
- Preop anemia (hg 11.8 on 08/23/25)
- Acute postop blood loss anemia- stable, no transfusion
- Acute postop atelectasis/ hypoxia/pulmonary insufficiency
- Acute postop hypovolemia with subsequent hypervolemia
Subjective
-
Date of Service: September 22, 2025
Objective Data
-
PT 16.9 Sec (11.4-14.6) H 09/18/25 10:36
INR 1.32 09/18/25 10:36
APTT 33.3 Sec (23.4-35.0) 09/18/25 10:36
Vital Signs
Vital Signs
Temp Pulse Resp BP Pulse Ox
98.1 F 68 16 133/68 91
09/21/25 23:55 09/21/25 23:00 09/21/25 23:55 09/21/25 21:37 09/22/25 00:00
CT Intake/Output/Weight
09/21/25 09/21/25 09/22/25
06:59 18:59 05:59
Intake Total 520 / 1650 1020 / 1020
Output Total 700 / 840 1725 / 1775 50 / 1775
Balance -180 / 810 -705 / -755 -50 / -755
SaO2: 91
Physical Exam
-
General: Awake and Oriented
Cardiovascular: Regular rate & rhythm, No Murmurs and No Rub
Respiratory: Clear and Equal
Sternum: Stable
Incision: Clean, Dry and Intact
Extremities: No Edema
Data Reviewed
-
Lab Results: Results Reviewed
Medications: Active Meds Reviewed
Chest X-Ray: Report Reviewed
ECG: Report Reviewed
[2025-09-22 04:19] VITALS: BP 121/65
[2025-09-22 05:18] VITALS: BMI 42.2
[2025-09-22] MEDS: TYLENOL 975 MG PO ×2 (05:18→13:14)
[2025-09-22 06:02] LABS: Hematocrit 30.3 % (37.0-47.0); Hemoglobin 9.4 g/dL (12.0-16.0); Mean Corp Hgb Conc. 31.0 g/dL (33.0-37.0); Mean Corpuscular Volume 88.6 fL (81.0-99.0); Platelet Count 200 10^3/uL (130-400); Red Cell Dist. Width 16.0 % (11.5-14.5)
[2025-09-22 06:03] LABS: Blood Urea Nitrogen 9 mg/dl (7-17); Calcium 7.1 mg/dl (8.4-10.2); Carbon Dioxide 28 mmol/L (22-30); Chloride 108 mmol/L (98-107); Estimated Creatinine Clearance 119 ml/min; Glucose 96 mg/dl (70-99); Magnesium 1.8 mg/dl (1.6-2.3); Potassium 3.3 mmol/L (3.5-5.1); Sodium 135 mmol/L (135-145); eGFR > 60.00
[2025-09-22] MEDS: KCL 40 MEQ PO ×2 (06:29→12:16)
--- NOTE | 2025-09-22 08:00 | PTCARENOTE ---
Assumed care of patient from buckram sewer RN. AAO x 3 Sitting up in the chair. SR BBB on monitor. Room air 97%, using IS independently. VSS. Surgical incision c,d,i. Plan for day discussed.
[2025-09-22 08:15] VITALS: BP 138/71
[2025-09-22] MEDS: NORVASC 5 MG PO (08:22)
[2025-09-22] MEDS: MUCINEX 600 MG PO (08:23)
[2025-09-22] MEDS: PROTONIX 40 MG PO (08:23)
[2025-09-22] MEDS: LOW STRENGTH ASPIRIN 81 MG PO (08:23)
[2025-09-22] MEDS: LIPITOR 20 MG PO (08:23)
[2025-09-22] MEDS: COZAAR 50 MG PO (08:23)
[2025-09-22] MEDS: NEURONTIN 100 MG PO (08:23)
[2025-09-22] MEDS: SENOKOT 8.6 MG PO (08:23)
[2025-09-22] MEDS: BACTROBAN 2% OINTMENT 1 APPLIC NASAL (08:24)
[2025-09-22] MEDS: MAGNESIUM OXIDE 400 MG PO (08:24)
[2025-09-22] MEDS: LOPRESSOR 12.5 MG PO (08:24)
[2025-09-22] MEDS: PACERONE 200 MG PO (08:24)
[2025-09-22] MEDS: NSS IV (09:32)
[2025-09-22] MEDS: LASIX 40 MG IV (11:05)
[2025-09-22] MEDS: KCL 20 MEQ PO (11:05)
--- NOTE | 2025-09-22 11:43 | PTCARENOTE ---
Ambulated in hallway with and steady gait, Tolerated stairs w/o issue. Ambulating pulse ox 92%, rechecked at rest for 94%. No SOB noted. 40 IV lasix administered
[2025-09-22 12:23] VITALS: BP 125/76
--- NOTE | 2025-09-22 12:26 | W.DCSUMMARY ---
Discharge Summary
Discharge Data
Date of Admission: 09/18/25
Date of Discharge: 09/22/25
Total time spent discharging patient (in min): 45
-
Pending Results: No
Hospital Course
Primary care physician:
Outpatient degreasing wheel operator:
Inpatient consultants:
Procedures:
Surgical aortic valve replacement [23 mm Brown Inspiris Resilia bioprosthesis] by Dr. Hooper on 09/18/25
Primary Diagnosis:
Critical gradients aortic valve stenosis
Secondary Diagnoses:
- Mild left ventricular hypertrophy with LV diastolic dysfunction
- Hypertension
- Pre-existing LBBB
- Chronic b/l lower extremity lymphedema
- Class 3 obesity (BMI of 42)
- Preop anemia (hg 11.8 on 08/23/25)
- Acute postop blood loss anemia- stable, no transfusion
- Acute postop atelectasis/ hypoxia/pulmonary insufficiency
- Acute postop hypovolemia with subsequent hypervolemia
HPI: Patient was evaluated in the outpatient setting by Dr. Hooper for severe aortic stenosis. After appropriate preoperative workup she was deemed a surgical candidate and electively admitted for the above-mentioned procedure.
Hospital course: Patient was admitted electively and underwent aortic valve replacement by Dr. Hooper on 09/18/2025. Please refer to his separately dictated operative report for complete details. Postoperatively the patient progressed well. She was
extubated per usual postop protocol at 1630.
Postoperative day #1: Patient was continuing to progress well. Invasive monitoring lines removed. She was gently diuresed. Oxygen was slowly weaned throughout the day. Oral antihypertensives restarted.
Postoperative day #2: Epicardial wires were removed. Chest tubes were removed. Armstrong was removed. Cardiac meds were titrated as appropriate.
Postoperative day #3: Patient remains on minimal oxygen. Diuresis was given. She improved throughout the day. She was ambulating independently.
Postoperative day #4: Patient was cleared for discharge to home. She will be sent home on a short course of increased Lasix dosing 40 mg daily with potassium. She normally takes 20 mg daily at home. I reviewed discharge instructions to explain to
the patient answered her questions to her satisfaction prior to her leaving today.
Home medication changes: Short 5-day course of 40 mg of p.o. Lasix with appropriate potassium replacement, oxycodone for acute pain, reduced dose of losartan at 50 mg daily, added metoprolol succinate 25 mg daily. Tylenol as needed for pain.
Discharge Plan
-
Patient Disposition: Home (Routine Discharge)
Discharge Diagnosis/Procedures: - Severe symptomatic aortic valve stenosis - s/p Surgical aortic valve replacement [23 mm Brown Inspiris Resilia bioprosthesis] by Dr. Hooper on 09/18/25, pod #4
- Intraop DIVINA: LVEF pre and postop was 60 % without any regional wma. Following surgery she had no paravalvular leak and normal cardiac function.
- Critical gradients aortic valve stenosis
- Mild left ventricular hypertrophy with LV diastolic dysfunction
- Hypertension
- Pre-existing LBBB
- Chronic b/l lower extremity lymphedema
- Class 3 obesity (BMI of 42)
- Preop anemia (hg 11.8 on 08/23/25)
- Acute postop blood loss anemia- stable, no transfusion
- Acute postop atelectasis/ hypoxia/pulmonary insufficiency
- Acute postop hypovolemia with subsequent hypervolemia
Diet: Low Cholesterol and Low Sodium
Activity: No strenuous activity
Driving Restrictions: Not until seen by your Dr
Bathing Restrictions: OK to Shower
Other Services: Cardiac Rehab
Specialty Instructions: Weigh Daily- Call MD for wt gain/loss 3 lbs overnight/5 lbs in 1 week
Activity Restrictions/Additional Instructions:
Please call St.
ACTIVITY:
-No strenuous activity: no heavy lifting, pushing, pulling anything over 15 pounds for one month
-continue to use stairs as tolerated
DRIVING RESTRICTIONS:
-No driving for one month or until approved by your surgeon
WOUND CARE:
-Shower daily. Use soap & water.
-No lotions, creams or powders on incision area.
DIET:
-continue a low fat/low cholesterol diet.
-IF you are diabetic, continue carb controlled diet.
CARDIAC REHAB:
-Please make appointment to start in 5-6 weeks with your local hospital program. (See Cardiac Rehabilitation Discharge Booklet).
SPECIALTY INSTRUCTIONS:
-Weigh yourself daily. Call your physician for any weight gain/loss of 3 lbs overnight or 5 lbs in one week.
-REPORT any clicking noise or uneven appearance of your sternum to your surgeon immediately.
-If you smoke, you are instructed to quit. The [place] smoking hotline phone number is [phone] [facility] to get scheduled. P: [phone]
Referrals:
CT Transitional Care Nurse [Outside]
Referral Note:
The Cardiothoracic Transitional Care Nurse will call you to set up a visit in 1-2 days.
Dion Tellez MD [Active, Pulmonary Medicine] - 11/21/25
Referral Note: Sleep apnea workup at discretion of patient her primary physician
Josephine Gamble CRNP [Family Provider, Family Practice]
Jean Pierre Hooper MD [Active, Cardiac Surgery] - 10/21/25 2:00 pm
Rey Nice MD [Active, Cardiology] - 10/31/25 11:00 am
Prescriptions:
New
losartan 50 mg Tablet
50 mg PO DAILY Qty: 30 2RF
acetaminophen 325 mg Tablet
650 mg PO Q4HPRN PRN (Reason: mild pain,headache,temp >101F ) Qty: 60 0RF
aspirin 81 mg Tablet,Chewable
81 mg PO DAILY Qty: 30 0RF
oxycodone 5 mg Tablet
5 mg PO Q4HPRN PRN (Reason: moderate pain) 7 Days Qty: 28 0RF
metoprolol succinate [Toprol XL] 25 mg tablet extended release 24 hr
25 mg PO DAILY Qty: 30 2RF
furosemide [Lasix] 40 mg tablet
40 mg PO DAILY Qty: 5 0RF
potassium chloride [Klor-Con M20] 20 mEq tablet,ER particles/crystals
20 meq PO DAILY Qty: 5 0RF
Continued
atorvastatin 20 mg Tablet
20 mg PO DAILY
amlodipine 5 mg Tablet
5 mg PO DAILY
Held
furosemide 20 mg Tablet
20 mg PO DAILY
Hold Instructions: Resume on 09/28/25. once you're done with your 5 days of 40 mg of lasix, resume your usual dosing
Discontinued
losartan 100 mg Tablet
100 mg PO DAILY
Discharge Orders:
Discharge Patient (As Directed); Ordered 09/22/25
Ordered By: Chico Mcrae
Care Plan Goals
Care Plan Goals:
Problem: Readiness for enhanced knowledge related to diagnosis and treatment plan
Goal: Understand your diagnosis and treatment plan needs, including medications if applicable.
Instructions: Know your diagnosis, underlying causes and treatment plan options, including medications if applicable. Consult with your health care team to learn about your diagnosis and treatment plan, including medications if applicable.
Discharge Date and Time
Print Language: GEORGIAN
[2025-09-22] MEDS: FLUZONE (6 mos+) 2025-2026 FORMULA 0.5 ML IM (13:15)
--- NOTE | 2025-09-22 13:37 | PTCARENOTE ---
Flu shot administered at patient request. Ambulating in hallway w/o issue. No SOB noted Pulse ox maintained.
--- NOTE | 2025-09-22 15:30 | PTCARENOTE ---
Heart monitor and INT removed, Assisted into shower , tolerated using shower, Assisted with dressing. VSS. Discharge instructions reviewed. Questions answered. wheeled to car by RN
== END 2025-09-22 15:45 | disposition home or self-care (01) | DRG 219 ==
LOC: CVICU 04:44
PROVIDERS: Anesthesiology; Clinical Nurse Specialist Acute Care; Physician Assistant Medical; ADMITTING PHYSICIAN Thoracic Surgery (Cardiothoracic Vascular Surgery); CONSULT PHYSICIAN Internal Medicine Critical Care Medicine; CONSULT PHYSICIAN Nuclear Medicine Nuclear Cardiology; FAMILY PHYSICIAN Nurse Practitioner
PROC: B24BZZ4 Ultrasonography of Heart with Aorta, Transesophageal (ICD-10-PCS; 2025-09-18)
PROC: 02RF08Z Replacement of Aortic Valve with Zooplastic Tissue, Open Approach (ICD-10-PCS; 2025-09-18)
PROC: 3E02340 Introduction of Influenza Vaccine into Muscle, Percutaneous Approach (ICD-10-PCS; 2025-09-22)
DX: I35.0 Nonrheumatic aortic (valve) stenosis (principal); J95.1 Acute pulmonary insufficiency following thoracic surgery; D62 Acute posthemorrhagic anemia; Z68.41 Body mass index [BMI] 40.0-44.9, adult; J98.11 Atelectasis; I10 Essential (primary) hypertension; I89.0 Lymphedema, not elsewhere classified; E66.813 Obesity, class 3; E78.5 Hyperlipidemia, unspecified; I44.7 Left bundle-branch block, unspecified; R00.1 Bradycardia, unspecified; E87.70 Fluid overload, unspecified; R09.02 Hypoxemia; E86.1 Hypovolemia; Y83.8 Other surgical procedures as the cause of abnormal reaction of the patient, or of later complication, without mention of misadventure at the time of the procedure; Z23 Encounter for immunization
CPT/HCPCS: 36415; 71045; 71046; 75572; 80048; 80053; 81003; 81015; 82248; 82330; 82565; 82805; 82947; 82962; 83036; 83735; 84132; 84302; 84520; 85014; 85018; 85025; 85027; 85049; 85610; 85730; 86850; 86900; 86901; 86920; 87070; 87086; 88305; 88311; 90656; 93005; 93312; 93320; 93325; 94002; G0008; J2916; Q9967